=== PATIENT | male | born 1950 | race Caucasian/White ===

== ENCOUNTER → 2020-07-24 | Outpatient (CLI) | payer MEDICARE, BC ==
[2014-05-02 09:00] VITALS: BP 98/71
[~2020-07-24] MED LIST: AMLO-187 PO; ASPI325T8 PO; ATOR20TA PO; CLOP75TA PO; CYCL10TA2 PO; FURO-69 PO; HYDR-3135 PO; IOHEXOL 240 MG/ML 50ML VIAL. PO ONE; IOHEXOL 300 MG/ML 100ML VIAL. IV ONE; METO25TA4 PO; MORP30TA PO; PRAM1TAB PO; TOPI50TA8 PO; VARE1TAB5 PO
--- NOTE | 2020-07-24 13:57 | RAD ---
INDICATION: Reason: LLQ abd pain / Spl. Instructions: omni 300 75ml omni 240 50ml / History: . COMPARISON: September 2015 TECHNIQUE: Axial CT images obtained through the abdomen and pelvis with contrast. One or more of the following individualized dose reduction techniques were utilized for this examinat ion: 1. Automated exposure control; 2. Adjustment of the mA and/or kV according to patient size; 3 . Use of iterative reconstruction technique. FINDINGS: There is some cystic and mild fibrotic changes suspected at lung bases. Dependent atelectasis. Severe coronary artery calcific atherosclerosis. Severe atherosclerotic disease. Bilateral common iliac artery stent. Calcified granuloma within the liver. No intrahepatic bile duct dilation. No peripancreatic fluid collection. There is a suspected cystic density lesion at the pancreatic head although this could also be a diver ticulum off of the bile duct. Measures about 10 mm. No perisplenic hematoma. Urinary bladder is partially distended. Exophytic right renal lesion which does not measure as a simple cyst is located at the lower pole [place] suring approximately a centimeter. Is also a cyst at the upper pole the right kidney. Moderate stool throughout the colon. No periappendiceal inflammation. No dilated loops of bowel to suggest obstruction. Prostate calcifications. Left ninth rib fracture with some callus formation. Fracture line is still seen and incompletely fuse d. Degenerative changes of the spine with multilevel central canal and neural foraminal stenosis. Degene rative changes hips. Postoperative changes with pedicle screws at L5 and S1 with partial posterior de compression changes. IMPRESSION: * Moderate stool throughout the colon without evidence of bowel obstruction or appendicitis. * Left ninth rib fracture with some callus formation but fracture line still seen. Would correlate with symptoms. * Questionable cystic density lesion at the pancreatic head versus a diverticulum off of the bile du ct or focal distention of bile duct. Causes such as intraductal papillary mucinous neoplasm or a tiny pseudocyst not excluded. * Right renal lesion which does not measure as a simple cyst. Also possible that this is secondary t o a lobulation. Further workup option would include obtaining CT, MRI or ultrasound renal protocol to further assess Electronically signed by: Nixon Khan MD (07/24/2020 1:55 PM) [id number]
--- NOTE | 2020-07-24 14:40 | RAD ---
Examination: MRI of the right shoulder without contrast HISTORY: History of right shoulder pain, suspected rotator cuff. COMPARISON: None. TECHNIQUE: Multiplanar, multisequence MR imaging of the right shoulder performed without contrast. FINDINGS: The long head of the biceps tendon within the bicipital groove. The attachment of the long head the b iceps tendon to the superior labral anchor grossly appears intact. The attachment of the subscapulari s tendon grossly appears intact. There is moderate increased T2 signal identified in the supraspinatus and infraspinatus tendons likel y tendinosis. There is small focus of full-thickness tear of the anterior fibers of the supraspinatus tendon measuring 6 mm likely full-thickness tear with extension of fluid into the subacromial subdel toid bursa. The muscle bulk grossly appears unremarkable. There is mild obscuration of fat in the supratentorial The acromion is type II. Moderate degenerative changes glenohumeral joint, acromioclavicular joint. T he visualized labrum grossly appears unremarkable. IMPRESSION: 1. Moderate increased T2 signal identified in the supraspinatus and infraspinatus tendons likely tend inosis. There is small focus of full-thickness tear of the anterior fibers of the supraspinatus tendo n measuring 6 mm likely full-thickness tear with extension of fluid into the subacromial/subdeltoid b ursa. 2. Mild obscuration of fat in the rotator interval. Correlate for adhesive capsulitis. Electronically signed by: Angus Wilson MD (07/24/2020 2:37 PM) [id number]
== END ==
LOC: MRI 11:01
PROVIDERS: ATTEND Family Medicine
DX: M75.101 Unspecified rotator cuff tear or rupture of right shoulder, not specified as traumatic (principal); M19.011 Primary osteoarthritis, right shoulder; N28.1 Cyst of kidney, acquired; N28.89 Other specified disorders of kidney and ureter; N42.89 Other specified disorders of prostate; J98.11 Atelectasis; I25.10 Atherosclerotic heart disease of native coronary artery without angina pectoris; K75.3 Granulomatous hepatitis, not elsewhere classified; I70.90 Unspecified atherosclerosis; N32.89 Other specified disorders of bladder; M16.0 Bilateral primary osteoarthritis of hip; M47.816 Spondylosis without myelopathy or radiculopathy, lumbar region; M48.061 Spinal stenosis, lumbar region without neurogenic claudication; M84.48XA Pathological fracture, other site, initial encounter for fracture; Z95.828 Presence of other vascular implants and grafts
CPT/HCPCS: 73221; 74177; Q9966; Q9967

== ENCOUNTER → 2020-10-02 | Outpatient (CLI) | payer MEDICARE, BC ==
[2014-05-02 09:00] VITALS: BP 98/71
[~2020-10-02] MED LIST changes: -IOHEXOL 240 MG/ML 50ML VIAL. PO ONE; -IOHEXOL 300 MG/ML 100ML VIAL. IV ONE
--- NOTE | 2020-10-02 17:35 | RAD ---
EXAMINATION: MRI and MRCP abdomen without IV contrast. INDICATION: Possible pancreatic lesion, abdominal pain for 6 months. TECHNIQUE: Multiplanar multisequence MRI and MRCP of the abdomen performed without IV contrast. 3-D c oronal heavily T2-weighted MRCP sequences. COMPARISON: CT dated 07/24/2020. FINDINGS: Normal morphology and size of the liver. Diffuse decreased hepatic signal on in phase sequence. No fo wagner hepatic lesion, within the limitation of noncontrast exam. No splenomegaly. Multiple cholelithias is. No MRI evidence of acute cholecystitis. No intra or extrahepatic biliary ductal dilation. No fill ing defect in the common bile duct to suggest choledocholithiasis. No discrete obstructing masses. Di ffuse atrophic pancreatic parenchyma with fat replacement. No main pancreatic ductal dilation. No dis crete pancreatic solid or cystic lesion. No adrenal nodule. No hydronephrosis in either kidney. Simple appearing cyst in the upper pole right kidney measures 3.6 cm, unchanged. Focal cortical scarring in the upper pole right kidney. No bowel d ilatation. No lymphadenopathy in the abdomen by size criteria. No ascites. Normal caliber abdominal a arvind. No suspicious osseous lesion. Unremarkable visualized lung bases. IMPRESSION: 1. Diffuse pancreatic parenchymal atrophy with fat infiltration. No discrete pancreatic lesion or deanne sheela dilation. 2. Diffuse decrease hepatic parenchymal signal on in phase sequence, findings can be seen in iron ove rload. Clinical correlation is advised. 3. Multiple cholelithiasis. No biliary ductal dilation. Electronically signed by: Martinez Montes MD (10/02/2020 5:33 PM) [id number]
== END ==
LOC: MRI 11:11
PROVIDERS: ATTEND Internal Medicine Gastroenterology
DX: K86.89 Other specified diseases of pancreas (principal); K80.20 Calculus of gallbladder without cholecystitis without obstruction; R93.89 Abnormal findings on diagnostic imaging of other specified body structures; N28.89 Other specified disorders of kidney and ureter
CPT/HCPCS: 74181

== ENCOUNTER → 2021-06-30 | Outpatient (CLI) | payer MEDICARE, BC ==
[2014-05-02 09:00] VITALS: BP 98/71
[~2021-06-30] MED LIST changes: +CYCL10TA19 PO; -CYCL10TA2 PO
--- NOTE | 2021-07-01 07:35 | KCIC ---
MRI Brain without contrast dated 07/01/2021 7:26 AM: No comparison available. Clinical Indication:Memory loss Reason: AMNESIA / Spl. Instructions: / History: Progressing memory l oss in recent months. Technical factors: Routine multiplanar multisequence MR imaging of the brain was performed without the administration of gadolinium. Findings: Ventricles and sulci are mildly prominent for age. No midline shift or mass effect. Mild spotty hyper intense FLAIR signal abnormality in the deep/subcortical periventricular white matter. No hemorrhage or extra-axial collection. 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 Posterior fossa and b rainstem otherwise unremarkable. No evidence of acute diffusion restriction. Major intracranial flow-voids are present. Postcontrast i maging was not performed.. Mild mucosal thickening of the ethmoid air cells. Paranasal sinuses and mastoid air cells are otherwi se clear. No apparent calvarial abnormality. IMPRESSION: 1. No evidence of acute intracranial hemorrhage or mass or acute infarct. 2. Mild chronic small vessel ischemic changes and atrophy. There is a small remote lacunar infarct of the left cerebellum. Electronically signed by: Michael Schneider MD (07/01/2021 7:32 AM) CHEY
--- NOTE | 2021-07-01 10:22 | KCIC ---
EXAM: MRI RIGHT WRIST DATE: 06/30/2021 2:20 PM CLINICAL HISTORY: Reason: RIGHT WRIST PAIN AND OLD TRAUMA / Spl. Instructions: / History: Pain and LROM thumb side of rt wrist. Trauma in the . COMPARISON: None. TECHNIQUE: Multiplanar, multisequence MR imaging of the right wrist was performed without IV contrast . FINDINGS: Examination is markedly limited by motion artifact. No radiocarpal, midcarpal and distal radial ulnar joint effusion. Tendons: The visualized flexor and extensor tendons are intact. However there is mild increased signal and thi ckening of the extensor compartment 1 tendons just beyond the radius, tendinosis with mild tenosynovi tis. The scapholunate and lunotriquetral ligaments are intact. TFC disc is intact. The radial, foveal and styloid attachments are grossly intact. Incidentally noted type II lunate with associated chondral effacement at the lunate-hamate interface and associated subchondral edema. Scattered foci of subchondral cysts centered at the midcarpal joint from overlying chondral thinning/fissuring. Degenerative changes of the thumb CMC joint are seen wit h chondral thinning and associated proliferative change. Median nerve and ulnar nerve are not well seen given motion artifact. No abnormal bowing of the flexo r retinaculum. No acute fracture or osteonecrosis. IMPRESSION: 1. Tendinosis of the extensor compartment 1 tendons with mild tenosynovitis at and beyond the distal radius. 2. Multifocal degenerative changes most prominent at the midcarpal joint. 3. 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 Electronically signed by: Dani Torres MD (07/01/2021 10:19 AM) [id number]
== END ==
LOC: KCIC MRI 13:52
PROVIDERS: ATTEND Family Medicine
DX: I63.81 Other cerebral infarction due to occlusion or stenosis of small artery (principal); I67.82 Cerebral ischemia; G31.89 Other specified degenerative diseases of nervous system; J32.2 Chronic ethmoidal sinusitis; M19.031 Primary osteoarthritis, right wrist; M77.8 Other enthesopathies, not elsewhere classified; M65.841 Other synovitis and tenosynovitis, right hand; M85.431 Solitary bone cyst, right ulna and radius
CPT/HCPCS: 70551; 73221